=== PATIENT | female | born 1990 | race Caucasian/White ===

== ENCOUNTER 2024-07-01 08:39 | Emergency (ER) | payer MEDICAID ==
[~2024-07-01] VITALS: Ht 157.5 cm; Wt 77.0 kg
[2024-07-01 08:48] VITALS: O2SAT 100
[2024-07-01 09:31] LABS: BASOPHILS % 0.8 % (0.0-2.0); EOSINOPHILS % 10.7 % (0.0-5.0); HEMATOCRIT. 42.4 % (36.0-48.0); HEMOGLOBIN. 13.7 g/dL (12.0-16.0); MEAN CORPUSCULAR HEMOGLOBIN 29.2 pg (28.0-32.0); MEAN CORPUSCULAR HGB CONC 32.3 g/dL (31.0-37.0); MEAN CORPUSCULAR VOLUME 90.2 fL (81.0-99.0); MEAN PLATELET VOLUME 9.5 fl (7.4-10.4); MONOCYTES % 6.3 % (2.0-8.0); NEUTROPHILS % 39.2 % (40.0-76.0); PLATELET 228 x1000/uL (130-400); RED CELL DISTRIBUTION WIDTH 14.2 % (11.6-14.6); WHITE BLOOD COUNT 6.2 x1000/uL (4.5-11.0)
[2024-07-01 09:33] LABS: CHLORIDE 110 mEq/L (98-107); POTASSIUM 3.8 mEq/L (3.5-5.1); SODIUM 139 mEq/L (136-145)
[2024-07-01 09:34] LABS: CARBON DIOXIDE 24 mEq/L (21-32)
[2024-07-01 09:35] LABS: CALCIUM 9.1 mg/dL (8.7-10.4)
[2024-07-01 09:39] LABS: CREATININE 0.8 mg/dL (0.6-1.0); GLUCOSE 110 mg/dL (70-105); UREA NITROGEN BLOOD 11 mg/dL (9-23)
[2024-07-01 09:44] LABS: HCG SCREEN NEGATIVE
[2024-07-01 10:41] LABS: TROPONIN I HIGH SENSITIVITY < 4 ng/L (3.0-34)
[2024-07-01 11:39] VITALS: BP 118/72; PULSE 82; RESP 16; TEMP 36.66960; O2SAT 100
== END 2024-07-01 11:41 | disposition home or self-care (01) ==
LOC: ER 08:47
DX: R07.89 Other chest pain (principal)
CPT/HCPCS: 36415; 71045; 80048; 81025; 84484; 84703; 85025; 93005; 99285

== ENCOUNTER 2025-04-06 12:28 | Emergency (ER) | payer MEDICAID ==
[~2025-04-06] VITALS: Ht 157.5 cm; Wt 78.0 kg
[2025-04-06 12:38] VITALS: TEMP 38; O2SAT 100
[2025-04-06] MEDS ORDERED: [UNRECOGNIZED DRUG - OTHER] RIGHTEYE (14:20)
[2025-04-06] MEDS ORDERED: AMOX-494 MT (14:20)
[2025-04-06] MEDS ORDERED: KETO10TA2 MT (14:20)
[2025-04-06] MEDS ORDERED: CIPR1DRO2 RIGHT EAR (14:20)
[2025-04-06 14:28] VITALS: O2SAT 98
[2025-04-06 14:37] VITALS: BP 132/83; PULSE 107; RESP 16
[2025-04-06] MEDS: KETOROLAC 30MG/ML VIAL IM ONE (14:37)
== END 2025-04-06 14:38 | disposition home or self-care (01) ==
LOC: ER 12:28
DX: J02.9 Acute pharyngitis, unspecified (principal); H72.91 Unspecified perforation of tympanic membrane, right ear
CPT/HCPCS: 99283; 81025; 96372; J1885

== ENCOUNTER 2025-06-19 07:34 | Emergency (ER) | payer MEDICAID ==
[~2025-06-19] VITALS: Ht 160 cm; Wt 78.0 kg
[~2025-06-19 07:34] MED LIST: AMOX-494 MT; CIPR1DRO2 RIGHT EAR; KETO10TA2 MT; [UNRECOGNIZED DRUG - OTHER] RIGHTEYE
[2025-06-19 07:41] VITALS: O2SAT 98
[2025-06-19] MEDS: ACETAMINOPHEN 1000MG/100ML 100 ML IV ONE (08:00)
[2025-06-19 08:17] LABS: BASOPHILS % 0.6 % (0.0-2.0); EOSINOPHILS % 3.9 % (0.0-5.0); HEMATOCRIT. 38.2 % (36.0-48.0); HEMOGLOBIN. 12.9 g/dL (12.0-16.0); LYMPHOCYTES % 35.2 % (20.0-50.0); MEAN PLATELET VOLUME 8.6 fl (7.4-10.4); MONOCYTES % 4.8 % (2.0-8.0); NEUTROPHILS % 55.5 % (40.0-76.0); PLATELET 254 x1000/uL (130-400); RED BLOOD CELL COUNT 4.38 mill/uL (4.2-5.4); RED CELL DISTRIBUTION WIDTH 13.7 % (11.6-14.6)
[2025-06-19] MEDS: METOCLOPRAMIDE HCL 10MG/2ML VIAL IV ONE (08:29)
[2025-06-19] MEDS: LACTATED RINGERS 1,000 ML IV SCH (08:30)
[2025-06-19 08:32] LABS: CREATININE 0.8 mg/dL (0.6-1.0); UREA NITROGEN BLOOD 14 mg/dL (9-23)
[2025-06-19 08:57] LABS: HCG SCREEN NEGATIVE
[2025-06-19 11:02] VITALS: BP 148/76; PULSE 88; RESP 16; TEMP 36.7; O2SAT 98
== END 2025-06-19 11:03 | disposition home or self-care (01) ==
LOC: ER 07:34
DX: S09.90XA Unspecified injury of head, initial encounter (principal); Z79.899 Other long term (current) drug therapy; Z86.39 Personal history of other endocrine, nutritional and metabolic disease; W10.0XXA Fall (on)(from) escalator, initial encounter; Y93.89 Activity, other specified; Y92.89 Other specified places as the place of occurrence of the external cause; Y99.8 Other external cause status
CPT/HCPCS: 80048; 84703; 85025; 36415; 70450; 96361; 96365; 96375; 99285; J2765; Z7610; J0131